=== PATIENT | female | born 1990 | race Caucasian/White ===

== ENCOUNTER 2020-03-10 05:12 | Outpatient (CLI) | payer MEDICAID, SELFPAY ==
[2020-03-10 10:12] LABS: Abs Immature Grans 0.01 10^3/uL (0.0-0.06); Absolute Basophil Count 0.02 10^3/uL (0.0-0.2); Absolute Eosinophil Count 0.09 10^3/uL (0.0-0.7); Absolute Lymphocyte Count 1.04 10^3/uL (1.2-3.4); Absolute Monocyte Count 0.31 10^3/uL (0.1-0.8); Basophils % 0.5; Eosinophils % 2.2; HCT 39.5 % (36.0-46.0); HGB 13.2 g/dL (11.2-15.7); Immature Grans % 0.2; Lymphocytes % 25.9; MCH 29.8 pg (27.0-33.0); MCHC 33.4 % (32.0-36.0); MCV 89.2 fL (80-95); MPV 10.4 fL (8.0-11.0); Monocytes % 7.7; Neutrophils % 63.5; Nucleated RBC 0 %; Platelet Count 298 10^3/uL (130-400); RBC 4.43 10^6/uL (3.93-5.22); RDW 12.3 % (11.7-14.6); RDW-SD 40.8 fL; WBC 4.01 10^3/uL (4.4-10.8)
[2020-03-10 10:14] LABS: Absolute Neutrophil Count 2.55 10^3/uL (1.2-6.7)
[2020-03-10 10:32] LABS: Hemoglobin A1C 5.4 % (<5.7)
[2020-03-10 10:54] LABS: Iron 60 ug/dL (50-170); Total Iron Binding Capacity 286 ug/dL (250-450); Transferrin Sat 21 % (15-50)
[2020-03-10 11:09] LABS: ALT 21 U/L (14-59); AST 22 U/L (15-37); Albumin 4.2 g/dL (3.4-5.0); Alkaline Phosphatase 49 U/L (46-116); BUN 11 mg/dL (7-18); Bilirubin, Total 0.4 mg/dL (0.2-1.0); CREATININE 0.92 mg/dL (0.55-1.02); Calcium 9.2 mg/dL (8.5-10.1); Calculated LDL 122 mg/dL (<100); Chloride 107 mmol/L (98-107); Cholesterol 185 mg/dL (<200); Ferritin 45 ng/mL (8-252); Glucose 93 mg/dL (74-106); HDL Cholesterol 50 mg/dL (40-60); Potassium 4.9 mmol/L (3.5-5.1); Sodium 141 mmol/L (136-145); Total Protein 7.5 g/dL (6.4-8.2); Triglyceride 66 mg/dL (<150)
[2020-03-11 04:37] LABS: Vitamin D 25 Total 80.6 ng/ml (30-100)
[2020-03-11 12:23] LABS: Lipoprotein (a) 28 mg/dL (<=30)
[2020-03-12 10:20] LABS: Homocysteine 12.3 umol/L (5.0-13.9)
== END 2020-03-10 05:32 ==
PROVIDERS: PCP Naturopath; Visit Provider Naturopath
DX: E55.9 Vitamin D deficiency, unspecified (principal); D50.9 Iron deficiency anemia, unspecified; Z13.220 Encounter for screening for lipoid disorders
CPT/HCPCS: 36415; 80053; 80061; 82306; 83090; 83695; 82728; 83036; 83540; 83550; 85025

== ENCOUNTER 2020-03-11 09:22 | Outpatient (REF) | payer MEDICAID, SELFPAY ==
--- NOTE | 2020-03-11 12:15 | PAPFT_PTH ---
PATIENT: Twila Larsen LOC: [facility] U#:[id number] AGE/SX: 29/F ROOM: RE03/11/[address]: Melanie Suarez : 1990 BED: DIS: 03/11/2020 SPEC #: [id number] RECD: 03/12/20 09:44 STATUS: ADRIANO RERio #: [id number] RADHA: 03/11/20 12:[address]: Melanie Suarez DEPT: [facility] Cytology RECD BY: Harika Mcdonough Tissues: 1 - CX/ENDOCX FOR PAP SMEARS Procedures: PAP THIN PREP/UVM Screening HPV DNA PROBE Comments: [id number] (CHLAMYDIA/GC)
[2020-03-15 14:53] LABS: Chlamydia Result Negative (Negative); GC Result Negative (Negative)
== END 2020-03-11 09:42 ==
LOC: LBN 09:22
PROVIDERS: PCP Naturopath; Visit Provider Naturopath
DX: Z11.3 Encounter for screening for infections with a predominantly sexual mode of transmission (principal); Z12.4 Encounter for screening for malignant neoplasm of cervix; R87.612 Low grade squamous intraepithelial lesion on cytologic smear of cervix (LGSIL); Z11.51 Encounter for screening for human papillomavirus (HPV)
CPT/HCPCS: 87491; 87591; 88142; 87624

== ENCOUNTER 2020-04-14 16:19 | Outpatient (REF) | payer MEDICAID, SELFPAY ==
--- NOTE | 2020-04-14 15:40 | CER_PTH ---
PATIENT: Twila Larsen LOC: [facility] U#:[id number] AGE/SX: 30/F ROOM: RE04/14/[address]: Yuridia Mahan DO : 1990 BED: DIS: 04/14/2020 SPEC #: [id number] RECD: 04/14/20 17:05 STATUS: ADRIANO REQ #: [id number] RADHA: 04/14/20 15:[address]: Yuridia Mahan DEPT: Surgical Specimen RECD BY: Lorraine Lim ENTERED: 04/14/20 17:06 SP TYPE: CER OTHR DR: Melanie Suarez Tissues: 1 - CERVICAL BIOPSY 2 - ENDOCERVICAL BX/CURRETTE Procedures: GROSS AND MICRO LEVEL 4 Comments: [id number]
== END 2020-04-14 16:39 ==
LOC: LBN 16:19
PROVIDERS: PCP Naturopath; Visit Provider Obstetrics & Gynecology
DX: Z12.4 Encounter for screening for malignant neoplasm of cervix (principal); Z97.5 Presence of (intrauterine) contraceptive device; R87.810 Cervical high risk human papillomavirus (HPV) DNA test positive; R87.612 Low grade squamous intraepithelial lesion on cytologic smear of cervix (LGSIL)
CPT/HCPCS: 88305

== ENCOUNTER 2021-05-27 14:51 | Outpatient (REF) | payer MEDICAID, SELFPAY ==
--- NOTE | 2021-05-27 14:00 | PAPFT_PTH ---
PATIENT: Twila Larsen LOC: [facility] U#:[id number] AGE/SX: 31/F ROOM: RE05/27/[address]: Lydia Jung : 1990 BED: DIS: 05/27/2021 SPEC #: [id number] RECD: 05/27/21 17:01 STATUS: ADRIANO RERio #: [id number] RADHA: 05/27/21 14:[address]: Lydia Jung DEPT: [facility] Cytology RECD BY: Lorraine Lim ENTERED: 05/27/21 17:01 SP TYPE: PAPFT OTHR DR: Ann Ellington Tissues: 1 - CX/ENDOCX FOR PAP SMEARS Procedures: PAP THIN PREP/UVM Screening HPV DNA PROBE Comments: [id number]
== END 2021-05-27 14:52 | disposition home or self-care (01) ==
LOC: LBN 14:51
PROVIDERS: PCP Family Medicine; Visit Provider Obstetrics & Gynecology Gynecology
DX: Z12.4 Encounter for screening for malignant neoplasm of cervix (principal); Z11.51 Encounter for screening for human papillomavirus (HPV); R87.612 Low grade squamous intraepithelial lesion on cytologic smear of cervix (LGSIL); R87.820 Cervical low risk human papillomavirus (HPV) DNA test positive
CPT/HCPCS: 88142; 87624

== ENCOUNTER 2021-07-11 15:04 | Outpatient (REF) | payer MEDICAID, SELFPAY ==
--- NOTE | 2021-07-11 14:40 | CER_PTH ---
PATIENT: Twila Larsen LOC: [facility] U#:[id number] AGE/SX: 31/F ROOM: RE07/11/[address]: Yuridia Mahan DO : 1990 BED: DIS: 07/11/2021 SPEC #: [id number] RECD: 07/11/21 18:29 STATUS: ADRIANO REQ #: [id number] RADHA: 07/11/21 14:[address]: Yuridia Mahan DEPT: Surgical Specimen RECD BY: Lorraine Lim ENTERED: 07/11/21 18:30 SP TYPE: CER OTHR DR: Ann Ellington Tissues: 1 - ENDOCERVICAL BX/CURRETTE 2 - CERVICAL BIOPSY Procedures: GROSS AND MICRO LEVEL 4 Comments: [id number]
== END 2021-07-11 15:05 | disposition home or self-care (01) ==
LOC: LBN 15:04
PROVIDERS: PCP Family Medicine; Visit Provider Obstetrics & Gynecology
DX: N87.0 Mild cervical dysplasia (principal)
CPT/HCPCS: 88305

== ENCOUNTER 2021-09-02 07:29 | Outpatient (CLI) | payer MEDICAID, SELFPAY ==
--- NOTE | 2021-09-02 13:20 | DI.RAD_ITS ---
Exam(s) XR SHOULDER RT COMPLETE 2+V EXAM: XR SHOULDER RT COMPLETE 2+V CLINICAL HISTORY: right shoulder pain, new bump,m25.511. TECHNIQUE: 2D digital imaging was performed. COMPARISON: No exams were available for comparison FINDINGS: No evidence of fracture or dislocation. No soft tissue calcifications. No degenerative changes in t he glenohumeral joint and AC joint. Bone density normal. No osseous lesions. IMPRESSION: No significant radiographic findings. DATA REPOSITORY: RADIATION DOSE DELIVERED:
== END 2021-09-02 07:49 ==
PROVIDERS: PCP Family Medicine; Visit Provider Family Medicine
DX: M25.511 Pain in right shoulder (principal)
CPT/HCPCS: 73030

== ENCOUNTER 2021-10-21 20:40 | Emergency (ER) | payer MEDICAID, SELFPAY ==
[2021-10-21 20:45] VITALS: BP 127/107; PULSE 99; RESP 14; TEMP 37.8; O2SAT 98
--- OUTSIDE RECORDS SUMMARY | 2021-10-21 20:47 | XMS_ITS ---
:1990 External Reference #:[id number] Author Care Team Providers Name Role Phone [facility] Primary Care Provider Unavailable Allergies Code Code System Name Reaction Severity Status Onset Sulfa Hives Moderate to Active 02/06/19 97 (Sulfonamid Severe e Antibiotics ) Medications None recorded. Problems Name Status Onset Date Source ? Vitamin D Deficiency Active 02/26/2020 ? Insomnia Active 02/26/2020 ? Bilateral Tinnitus Active 02/26/2020 ? Leukorrhea Active 03/11/2020 ? Procedures None recorded. Results Lab Results None recorded. Past Encounters None recorded. Social History Tobacco Smoking Status Former Smoker Vaccine List None recorded. Plan of Care Reminders Provider Appointments None ? ? recorded. Lab None ? ? recorded. Referral None ? ? recorded. Procedures None ? ? recorded. Surgeries None ? ? recorded. Imaging None ? ? recorded. Vitals None recorded.
[2021-10-21] MEDS: Lactated Ringers 1,000 ML 1000 ML IV (21:00)
[2021-10-21 21:05] LABS: Abs Immature Grans 0.02 10^3/uL (0.0-0.06); Absolute Basophil Count 0.03 10^3/uL (0.0-0.2); Absolute Eosinophil Count 0.03 10^3/uL (0.0-0.7); Absolute Lymphocyte Count 1.15 10^3/uL (1.2-3.4); Absolute Monocyte Count 0.91 10^3/uL (0.1-0.8); Absolute Neutrophil Count 4.76 10^3/uL (1.2-6.7); Basophils % 0.4; Eosinophils % 0.4; HCT 41.9 % (36.0-46.0); HGB 13.9 g/dL (11.2-15.7); Immature Grans % 0.3; Lymphocytes % 16.7; MCH 29.3 pg (27.0-33.0); MCHC 33.2 % (32.0-36.0); MCV 88.4 fL (80-95); MPV 10.4 fL (8.0-11.0); Monocytes % 13.2; Platelet Count 290 10^3/uL (130-400); RBC 4.74 10^6/uL (3.93-5.22); RDW 11.9 % (11.7-14.6); RDW-SD 38.6 fL
[2021-10-21 21:18] LABS: ALT 13 U/L (14-59); AST 14 U/L (15-37); Alkaline Phosphatase 63 U/L (46-116); Anion Gap 11.1 mmol/L (3-11); BUN 8 mg/dL (7-18); Bilirubin, Total 0.3 mg/dL (0.2-1.0); CO2 22.9 mmol/L (21.0-32.0); CREATININE 0.8 mg/dL (0.55-1.02); Chloride 101 mmol/L (98-107); Glucose 98 mg/dL (74-106); Magnesium 1.9 mg/dL (1.8-2.4); Potassium 4.2 mmol/L (3.5-5.1); Sodium 135 mmol/L (136-145); Total Protein 7.9 g/dL (6.4-8.2)
--- NOTE | 2021-10-21 21:58 | ED.GENADUL_ITS ---
Discharge Plan Disposition Patient Disposition: STILL A PATIENT Discharge Details Clinical Impression: Acute diarrhea Primary Care Provider: Ann Ellington ED Provider: Hai Aguero Home Meds and New Rx's Prescriptions: No Action magnesium 250 mg Tablet 250 mg PO DAILY 0RF cholecalciferol (vitamin D3) [Vitamin D3] 25 mcg (1,000 unit) Tablet 25 mcg PO DAILY 0RF Probiotic 10 billion cell Capsule 10,000 mmu cells PO DAILY 0RF Medical Decision Making 1000p --31-year-old female here with diarrhea for the past 5 days after traveling to [place] and [facility]. She has associated abdominal cramping and fever today of 100.6. No bloody stool. Concern for traveler's diarrhea. Given severity of symptoms without fever, I will treat with azithromycin 1000 mg x1. Abdominal exam is benign. Plan to provide IV rehydration, I have initiated 1 L fluid bolus. Electrolytes reviewed and mild hyponatremia noted. 1041 --care signed out to oncoming physician Dr. Linder with plan to reassess patient for disposition after completion of IV HPI General Mode of arrival: ambulatory . Date/Time Provider Initiated Documentation: 10/21/21 20:57 . Limitations to Documentation: no limitations . Information obtained by: patient . HPI Narrative: 31yo f presents with chief complaint of diarrhea. Patient notes diarrhea for the past 5 days. Patient was traveling abroad in [place] and [facility] and does note she ate some undercooked food. She returned to 1 week ago and was feeling fine on Sunday and Sunday and started to have symptoms Sunday. Diarrhea has been severe. She has associated abdominal cramping that is diffuse. She has diarrhea is brown liquid. No bloody stool. No associated nausea or vomiting. Today she is felt dizzy. Patient notes fever tonight of 101.6F. Related Data Home Medications Medication Instructions Recorded Confirmed Lactobacillus acidophilus 10 10,000 mmu cells PO DAILY 10/21/21 10/21/21 billion cell capsule (Probiotic) cholecalciferol (vitamin D3) 25 25 mcg PO DAILY 10/21/21 10/21/21 mcg (1,000 unit) tablet (Vitamin D3) magnesium 250 mg tablet 250 mg PO DAILY 10/21/21 10/21/21 Allergies Allergy/AdvReac Type Severity Reaction Status Date / Time Sulfa (Sulfonamide Allergy Severe Verified 10/21/21 20:58 Antibiotics) General Stated Complaint: Nausea/Vomit/Diar DARWIN: 3 Review of Systems Constitutional Constitutional: Reports fever(s) Gastrointestinal Gastrointestinal: Reports as per HPI PFSH All Active Problems (Updated 10/21/21 @ 22:15 by Hai Aguero MD) Acute diarrhea (Acute) Biceps tendinitis of right shoulder (Acute) Bursitis of right shoulder (Acute) Arthralgia of right acromioclavicular joint (Acute) IUD (intrauterine device) in place (Acute) 2018-Lietta IUD. Mood disorder (Acute) Suspected Bipolar I Anxiety (Chronic) Depression (Chronic) Patellofemoral syndrome (Acute) TMJ (temporomandibular joint disorder) (Acute) Urinary frequency (Acute) since age 3 LGSIL on Pap smear of cervix (Acute) LSIL 2019, Colpo WNL. LSIL pap 2020, colpo 07/2022 Contraception management (Acute) Family History Mother Cancer Leukemia Father No problems noted. Sister Alcohol use disorder Substance use disorder Brother Asthma Maternal Grandfather , 88 Leukemia Paternal Grandfather , 49? Cancer radiation exposure. multiple forms of cancer Maternal Grandmother , 86 Stroke Paternal Grandmother , 95 Diabetes Hyperlipidemia Stroke Social History Smoking/Tobacco Use Status: Former Tobacco Use Second Hand Exposure: Yes Smoking risk assessment performed?: Yes Alcohol Intake: current Alcohol Intake frequency: a few times a month Alcohol type: beer Drug use: Daily Substance use type: marijuana Details: Tried marijuana yesterday to help with nausea without relief. Caregiver/Support person: No Household members: significant other and other Details: PASCALE Jian. since 07/2019. He works at [employer] 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 Pets and animals: Yes Pets and animals: cat(s), dog(s) and farm animals Sexually active: Yes Do you think of yourself as: straight/heterosexual Current gender identity: female What is your relationship status?: living with partner How often do you talk on the phone with friends or family?: twice per week How often do you get together with friends or relatives?: twice per week How often do you attend yarsanism or cheondoism services?: decline to answer Do you belong to any clubs or organized social groups?: yes Panel score (0-1 are the most socially isolated patients): 3 What type of physical activity do you participate in: regular exercise, other Details: climbing, mountain biking. and yoga Duration: 30-45 minutes/day Frequency: 3-4 times per week Fabi/Rastafarian: Unknown Seatbelt use: always Helmet use: Yes Drive intox or ride w/intox tow bar driver: No Do you feel safe at home: Yes Do you feel safe in your relationship?: Yes History History 0 Para Hx # Term Pregnancies Multiple births Hx # Pregnancies Ectopic pregnancies AB induced Hx Number of Living Children AB spontaneous Exam Const General: cooperative and no acute distress HENMT Mouth: mucous membranes dry Eyes Conjunctivae: normal conjunctivae Sclera: normal sclerae Neck Neck: trachea midline and supple Resp Auscultation: clear to auscultation bilaterally, no rales, no rhonchi and no wheezes Cardio Rate: regular rate and not tachycardic Rhythm: regular rhythm GI Palpation: soft, not firm, no guarding, no masses and not rigid Skin General skin exam: no rashes or lesions noted Neuro General: patient alert and patient awake Extrem General: no edema Psych Appearance: grossly normal Mental Status: mental status grossly normal Course Vital Signs Vital signs: Vital Signs Temperature 37.8 C H 10/21/21 20:45 Pulse 99 H 10/21/21 20:45 Respiratory Rate 14 10/21/21 20:45 Blood Pressure 127/107 H 10/21/21 20:45 Pulse Oximetry 98 10/21/21 20:45 Temperature 37.8 C H 10/21/21 20:45 Temperature Source Skin 10/21/21 20:45 Pulse 99 H 10/21/21 20:45 Respiratory Rate 14 10/21/21 20:45 Respiratory Effort Non-Labored 10/21/21 20:49 Blood Pressure 127/107 H 10/21/21 20:45 Blood Pressure Position Sitting 10/21/21 20:45 Pulse Oximetry 98 10/21/21 20:45 Oxygen Delivery Method Room Air 10/21/21 20:45 Oxygen Flow Rate 0 10/21/21 20:45 Pain Level 8 04/15/22 20:45 Lab/Test Results Lab/Test Results: Laboratory Tests Range/Units 10/21/21 10/21/21 21:00 21:00 WBC (4.4-10.8) 10^3/uL 6.90 RBC (3.93-5.22) 10^6/uL 4.74 Hgb (11.2-15.7) g/dL 13.9 Hct (36.0-46.0) % 41.9 MCV (80-95) fL 88.4 MCH (27.0-33.0) pg 29.3 MCHC (32.0-36.0) % 33.2 RDW (11.7-14.6) % 11.9 Plt Count (130-400) 10^3/uL 290 MPV (8.0-11.0) fL 10.4 Immature Gran % 0.3 Neutrophils % 69.0 Lymphocytes % 16.7 Monocytes % 13.2 Eosinophils % 0.4 Basophils % 0.4 Nucleated RBC % (0.0-0.3) % 0.0 Absolute Neutrophils (1.2-6.7) 10^3/uL 4.76 Absolute Lymphocytes (1.2-3.4) 10^3/uL 1.15 L Absolute Monocytes (0.1-0.8) 10^3/uL 0.91 H Absolute Eosinophils (0.0-0.7) 10^3/uL 0.03 Absolute Basophils (0.0-0.2) 10^3/uL 0.03 Sodium (136-145) mmol/L 135 L Potassium (3.5-5.1) mmol/L 4.2 Chloride (98-107) mmol/L 101 Carbon Dioxide (21.0-32.0) mmol/L 22.9 Anion Gap (3-11) mmol/L 11.1 H BUN (7-18) mg/dL 8 Creatinine (0.55-1.02) mg/dL 0.8 Estimated GFR/1.73 m2 (mL/min/1.73m2) >= 60.00 Glucose (74-106) mg/dL 98 Calcium (8.5-10.1) mg/dL 9.0 Magnesium (1.8-2.4) mg/dL 1.9 Total Bilirubin (0.2-1.0) mg/dL 0.3 AST (15-37) U/L 14 L ALT (14-59) U/L 13 L Alkaline Phosphatase (46-116) U/L 63 Total Protein (6.4-8.2) g/dL 7.9 Albumin (3.4-5.0) g/dL 4.0 Sign Out Sign Out Data: Sign Out Comment: reassess for disposition Last updated by Hai Aguero MD at 10/21/21 22:41
[2021-10-21] MEDS: Azithromycin 250 MG TAB 1000 MG PO (22:30)
--- NOTE | 2021-10-22 00:05 | ED.PROG_ITS ---
Date of service: 10/22/21 Time of Service: 00:05 Medical Decision Making The patient was signed out to me by my colleague Dr. Hai Aguero. Please refer to his HPI, physical exam, assessment and plan. At time of signout we are waiting reassessment of fluids finished. Brief history, the patient recently traveled, had a fever and diarrhea for the last few days. She presented to the ER, had a benign nonsurgical abdomen on exam, labs were unremarkable, she was rehydrated, and stool studies were sent. She was given a gram of azithromycin for treatment for infectious diarrhea. At time of reassessment patient is feeling much better. Her diarrhea has been diminished here in the ED. Stool studies have been sent. Repeat abdominal exam shows no pain to McBurney's point, negative Baez sign. No signs of an acute surgical abdomen whatsoever. Mild lower abdominal achiness, but no significant tenderness. No peritoneal signs. With the patient subjective improvement, and her continued encouraging exam objectively, I do agree with the initial plan and see no indication for emergent imaging currently. Will recommend continued fluids, follow-up on stool studies, Pepto-Bismol, and continue probiotic. I discussed with the patient concerning symptoms that could come about later that would warrant immediate return, including signs and symptoms of appendicitis, colitis, and other concerning abdominal abnormalities. Patient understands. Discussed red flags which to return. I did make it clear to the patient that I have on for the next week, that she can call if she has any other concerns that present. I have extensively reviewed the treatment plan and discharge instructions with the patient. I have addressed all patient concerns at this time. The patient was made aware of what symptoms to monitor for that would warrant a return to the emergency department. Discussed the plan with the giovany waldron, they demonstrate verbal understanding and agreement with our assessment and plan at this time. The documentation in this chart was dictated using [employer] dictation software. Please excuse any dictation errors. Sign Out Sign Out Data: Sign Out Comment: reassess for disposition Last updated by Hai Aguero MD at 10/21/21 22:41 Discharge Plan Disposition Patient Disposition: HOME Discharge Details Clinical Impression: Acute diarrhea Primary Care Provider: Ann Ellington ED Provider: Hai Aguero Home Meds and New Rx's Prescriptions: Continued magnesium 250 mg Tablet 250 mg PO DAILY 0RF cholecalciferol (vitamin D3) [Vitamin D3] 25 mcg (1,000 unit) Tablet 25 mcg PO DAILY 0RF Probiotic 10 billion cell Capsule 10,000 mmu cells PO DAILY 0RF Discharge Instructions Instructions: Acute Diarrhea (ED) Additional Instructions: You have been given the antibiotic dose for your diarrhea. This should help improve your symptoms as there is an infectious component. Please hold off on taking any specific antidiarrhea pills until the culture results of your stool have come back. You will be contacted if your results come back with any concerning positive findings. Please drink plenty of fluids, take your home probiotic regularly. You can take Pepto-Bismol to help with your symptoms. If you notice any worsening of your symptoms, or any new symptoms such as vomiting, worsening diarrhea, blood in your stool, fever, chills, shortness of breath, chest pain, numbness, weakness, or fainting , please return immediately to the emergency department for reevaluation. Please follow up with your primary care provider as soon as possible for reassessment and reevaluation. As always, it was a pleasure participating in your medical care today. Referrals: Ann Ellington MD [Primary Care Provider] -
[2021-10-22 00:38] VITALS: BP 121/54; PULSE 80; RESP 14; TEMP 37.2; O2SAT 97
[2021-10-23 10:47] LABS: Campylobacter PCR Negative (Negative); Salmonella PCR Positive (Negative); Shiga Toxin PCR Negative (Negative); Shigella/Enteroinvasive Ecoli Negative (Negative)
[2021-10-23 10:58] LABS: COVID-19 RT-PCR UVMMC Result Negative (Negative)
--- NOTE | 2021-10-23 11:01 | W.ED.FU ---
Follow Up Plan: lab called and pt's fecal bacterial pcr came back positive for salmonella. Called patient and she feels better, no fevers or abdomen pain and diarrhea improving. Per up todate guidelines self limiting course and advised antibiotics not indicated but to return if any worsening symptoms.
--- NOTE | 2021-10-24 09:48 | NUR.NOTE ---
left message for patient to return our call about her covid results
--- NOTE | 2021-10-26 11:19 | NUR.NOTE ---
Nursing Note: Given Negative Covid test result. Verbalizes understanding. States feeling much better.
== END 2021-10-22 00:37 | disposition home or self-care (01) ==
PROVIDERS: Student in an Organized Health Care Education/Training Program; Emergency Provider Student in an Organized Health Care Education/Training Program; PCP Family Medicine
DX: R19.7 Diarrhea, unspecified (principal); R50.9 Fever, unspecified; E87.1 Hypo-osmolality and hyponatremia; Z20.822 Contact with and (suspected) exposure to COVID-19; A02.8 Other specified salmonella infections
CPT/HCPCS: 80053; 87505; 96360; 96361; 99283; 99284; U0003; 83735; 85025

== ENCOUNTER → 2021-11-02 02:06 | Outpatient (CLI) | payer MEDICAID, SELFPAY ==
--- NOTE | 2021-11-02 07:00 | DI.MRI_ITS ---
Exam(s) MR UPPER JOINT RT WO EXAM: MR UPPER JOINT RT WO CLINICAL HISTORY: r shoulder pain,BICEPS TENDINITIS,BURSITIS,ARTHRALGIA,M75.21,M75.51,M25.511. TECHNIQUE: Multiplanar multisequence MRI was performed. COMPARISON: Plain films 02 September 2021 FINDINGS: Bones: There is no fracture or contusion pattern. The acromioclavicular joint shows minimal spurring and a s mall amount of fluid.. Glenohumeral joint: No subacromial, subcoracoid or glenohumeral joint effusion is present. Rotator Cuff: The supraspinatus tendon shows mild thickening distally with some intermediate signal. No focal tear . The infraspinatus tendon is intact . The subscapularis and teres minor are normal. Labrum and biceps anchor: The biceps tendon is located. The anchor is well maintained. The labrum is within normal limits. IMPRESSION: Mild AC joint degenerative changes. Mild supraspinatus tendinosis. DATA REPOSITORY:
== END ==
PROVIDERS: PCP Family Medicine; Visit Provider Student in an Organized Health Care Education/Training Program
DX: M25.511 Pain in right shoulder (principal); M75.21 Bicipital tendinitis, right shoulder; M19.011 Primary osteoarthritis, right shoulder
CPT/HCPCS: 73221

== ENCOUNTER 2022-05-26 06:55 | Day surgery (SDC) | payer MEDICAID, SELFPAY ==
[2022-05-26] VITALS (14 sets, daily range): BP systolic 105–127; BP diastolic 45–79; PULSE 46–84; RESP 12–26; TEMP 36.2–37.2; O2SAT 93–100; BMI 27.4
--- NOTE | 2022-05-26 07:57 | ANES.PREOP_ITS ---
General Info Date of Service Date Performed: 05/26/22 Height: 5 ft 11 in Weight: 89.2 kg Body Mass Index (BMI): 27.4 Surgical Procedure: Operation Date: 05/26/22 09:10 Proposed Procedure Side Surgeon p Shoulder Arthroscopy w/Extensive Debridement, Subacromial Decompression and Distal Clavicle Excision possible Biceps Tenodesis Right Carlitos Leslie MD Meds Allergies and Home Medications Allergies Allergy/AdvReac Type Severity Reaction Status Date / Time Sulfa (Sulfonamide Allergy Severe Verified 05/26/22 07:00 Antibiotics) Home Medication Medication Instructions Recorded Lactobacillus acidophilus 10 10,000 mmu cells PO DAILY 10/21/21 billion cell capsule (Probiotic) magnesium 250 mg tablet 250 mg PO DAILY 10/21/21 biotin 1 mg tablet 1 mg PO DAILY 05/03/22 ulipristal 30 mg tablet (Roxana) 30 mg PO ONCE #1 tab 05/09/22 amoxicillin 500 mg tablet 1,000 mg PO ONCE 05/24/22 cholecalciferol (vitamin D3) 25 1,000 unit PO DAILY 05/24/22 mcg (1,000 unit) tablet (Vitamin D3) naproxen 250 mg tablet 250 - 500 mg PO BID PRN #40 tabs 05/26/22 tramadol 50 mg tablet 50 mg PO Q8H PRN severe pain #9 05/26/22 tabs Current Visit Medications: Current Medications Generic Name Dose Route Start Last Admin Trade Name Freq PRN Reason Stop Dose Admin Ringer's Solution 1,000 mls @ 30 mls/hr 05/26/22 06:00 IV 05/26/22 16:00 [facility] Cefazolin Sodium/Dextrose 2 gm in 50 mls @ 100 mls/hr 05/26/22 06:00 Ancef Duplex IVPB 05/26/22 23:59 PREOP ROXANN IV Miscellaneous Supplies 1 each 05/26/22 06:00 Iv Access IV 05/26/22 23:59 DIRECTED ROXANN Oxycodone HCl 0 mg 05/26/22 07:18 Oxycodone 5 Mg Tab PO Q3H PRN PRN Pain Sodium Chloride 0 ml 05/26/22 06:00 Normal Saline Flush 10 Ml Syr IV 05/26/22 23:59 PRN PRN Sodium Chloride 0 ml 05/26/22 06:00 Normal Saline 10 Ml Vial IJ 05/26/22 23:59 DIRECTED PRN Sterile Water 0 ml 05/26/22 06:00 Water,Injection,Sterile 10 Ml Vial IJ 05/26/22 23:59 DIRECTED PRN PFSH Active Problems Active Problems: Problem Status Onset Code Contraception management Z30.9 LGSIL on Pap smear of cervix R87.612 Urinary frequency R35.0 TMJ (temporomandibular joint disorder) M26.609 Patellofemoral syndrome M22.2X9 Depression F32.A Anxiety F41.9 Mood disorder F39 IUD (intrauterine device) in place Z97.5 Arthralgia of right acromioclavicular joint M25.511 Biceps tendinitis of right shoulder M75.21 Thoracic back pain M54.6 Medical History Medical History (Updated 05/26/22 @ 07:20 by Carlitos Leslie MD) Bursitis of right shoulder COVID 04/18/22 Tick bite 05/23/22 Surgical History Surgical History H/O wisdom tooth extraction no anesthesia Tobacco Smoking/Tobacco Use Status: Never Second hand exposure: Yes Alcohol Alcohol Intake: current Alcohol intake frequency: a few times a month Alcohol type: beer Substance Use Substance use type: does not use Prental History History 0 Para Hx # Term Pregnancies Multiple births Hx # Pregnancies Ectopic pregnancies AB induced Hx Number of Living Children AB spontaneous Vital Signs and Lab Results Vital Signs Most Recent Vital Signs in EMR: Most Recent Vital Signs Temp Pulse Resp BP Pulse Ox 37.2 C 74 16 108/59 L 98 05/26/22 07:02 05/26/22 07:02 05/26/22 07:02 05/26/22 07:02 05/26/22 07:02 Lab Results Blood Type / Crossmatch: No Data to Display Complete Blood Count: No Data to Display Complete Metabolic Panel: No Data to Display Liver Function Panel: No Data to Display Coagulation Panel: No Data to Display Cardiac Panel: No Data to Display Arterial Blood Gas: No Data to Display Venous Blood Gas: No Data to Display Pancreas Panel: No Data to Display Thyroid Panel: No Data to Display Infectious Disease: No Data to Display Blood Cultures: No Data to Display Toxicology Panel: No Data to Display Panel: No Data to Display Anesthesia Assessment and Plan Anesthesia History Personal History: No History of Anesthesia Complications Family History: No Family History of Anesthesia Complications Exercise Tolerance Exercise Tolerance: Metabolic Equivalents>4 Pertinent Negatives Pertinent Negatives: No Symptoms of GERD, No Major Cardiovascular Symptoms or Complaints, No Major Pulmonary Symptoms or Complaints and No History of CVA/TIA Cardiac & Pulmonary Exam Cardiac Exam: Normal S1/S2 Heart Sounds Pulmonary Exam: Clear Bilateral Breath Sounds Implantable Cardiac Device Does patient have a Pacemaker or an ICD?: No Airway Exam Known Difficult Airway: No Mallampati Class: 1 Mouth Opening: Normal (> 3cm) Thyromental Distance: Greater than 3 cm Neck Range of Motion: Full ROM Neck Circumference: Normal Teeth Condition: Normal Dentition ASA Classification ASA Score: ASA 2 Emergency Case?: No NPO Status NPO Status: NPO Clears >2 hours, Solids >8 hours Status Status: Negative HCG Anesthesia Plan Resuscitation Status: Full Code Anesthesia Technique: General Anesthesia Airway Planned: Endotracheal Tube Pain Management: Surgeon and patient request nerve block (Right supraclavicular block for post op pain) Monitors Used: Standard Monitors
[2022-05-26] MEDS: ceFAZolin 2 GM/50 ML BAG IVPB (09:06)
[2022-05-26] MEDS: Lactated Ringers 1,000 ML 30 ML IV (09:15)
--- NOTE | 2022-05-26 09:36 | W.ANESNERVE ---
Nerve Block Single Injection Procedure Date and Time Date Performed: 05/26/22 Procedure Start: 08:42 Location Where Procedure Performed Procedure Location: Day Surgery Unit Reason Performed: Postoperative Analgesia Requesting Provider: Carlitos Leslie Timeout Performed Timeout Performed: Yes Monitoring Used ECG, Blood Pressure, SpO2 and See EMR for corresponding vital signs Sterility Sterility: Hand Hygiene, Surgical Cap, Surgical Mask, Sterile Gloves, Sterile Drape/Sheet and Chlorhexidine Sedation Given During Procedure Sedation Given (Indicate Dose Given): Versed IV Dose:: 2 mg Patient Mental Status Patient Mental Status: Sedate with meaningful communication Nerve Block 1st Nerve Block: Laterality: Right Block Type: Supraclavicular Needle / Catheter Used: 100mm SonoPlex II Local Anesthetic Bolus (Indicate Dose Given): Lidocaine used for local infiltration of skin, Injected in 3-5ml increments after negative blood aspiration and Bupivacaine 0.5% Dose:: 12 ml Additives (Indicate Dose Given): Precedex Dose:: 60 mcg Ultrasound: Sterile probe cover and gel used Ultrasound Image Saved?: Yes Nerve Stimulator: Not Used Paresthesia: None Procedure Tolerated: No Complications and Patient tolerated well Procedure Outcome: Successful Performed By: Katharine Maldonado
[2022-05-26] MEDS: EPINEPHrine 30 MG/30 ML VIAL (10:04)
[2022-05-26] MEDS: Bupivacaine 0.5% Pres-Free W/EPI 10 ML VIAL (10:17)
--- NOTE | 2022-05-26 10:20 | W.PM.DSUDISC ---
Date of service: 05/26/22 Time of Service: 10:20 Discharge Plan Disposition Patient Disposition: HOME Condition: Good Discharge Details Attending Provider: Carlitos Leslie Primary Care Provider: Unknown,Unknown Home Meds and New Rx's Prescriptions: New naproxen 250 mg tablet 250 - 500 mg PO BID PRNQty: 40 0RF Rx Instructions: take with a meal tramadol 50 mg tablet 50 mg PO Q8H PRN (Reason: severe pain) Qty: 9 0RF Continued biotin 1 mg tablet 1 mg PO DAILY Roxana 30 mg tablet 30 mg PO ONCE Qty: 1 0RF Rx Instructions: as a single dose amoxicillin 500 mg Tablet 1,000 mg PO ONCE Label Comments: tick bite cholecalciferol (vitamin D3) [Vitamin D3] 25 mcg (1,000 unit) Tablet 1,000 unit PO DAILY magnesium 250 mg Tablet 250 mg PO DAILY Probiotic 10 billion cell Capsule 10,000 mmu cells PO DAILY Discharge Instructions Additional Instructions: Surgery: Right shoulder arthroscopy with limited debridement, distal clavicle excision, and subacromial decompression. Activity: You should gradually increase range of motion motion and use of your shoulder. You may use your shoulder for all regular activities. Avoid heavy lifting, reaching overhead, or lifting away from body for approximately 6-8 weeks. You may use the sling whenever you are out of the house for a couple weeks. At home it is best to remove the sling and rest the arm on a pillow at your side or support the operative side with your other hand. A physical therapy prescription will be sent electronically to start in about 2 weeks. Prescriptions: Naproxen 250 mg take 1-2 every 12 hours with a meal as needed for moderate pain Oxycodone 5 mg take 1-2 every 4-6 hours as needed for severe pain You may use [id number] Tylenol (acetaminophen) as needed for mild pain. These pain medications may be taken all at once or in different combinations as needed. Also, recommend Colace (docusate) as a stool softener as surgery and pain medicine cause constipation. You may try tpaq-rrb-bismucm diphenhydramine (Benadryl) 25-50 mg nightly as a sleep aid Dressings: Remove shoulder bandage after 3 days. Leave the sticky Steri-Strips in place until they fall off or remove them after you shower. Cover the incisions with Band-Aids or leave them open to air. You may shower after 5 days. Follow-up: 10-[address] Leslie You may take off the leg compression stockings this evening at home. You may also leave them on a few days longer if you have a history of leg swelling or edema. Let us know right away if you develop any redness, drainage, fevers, chest pain, or trouble breathing. Do not drink alcohol or drive for at least 24 hours after anesthesia. Please call the office during business hours with any questions or concerns. DS: Diagnosis Discharge Diagnosis (1) Arthralgia of right acromioclavicular joint: Status: Acute
--- NOTE | 2022-05-26 10:40 | W.PM.OP ---
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 Bursitis POST-OP DIAGNOSIS: same PROCEDURE: Right: 1. Arthroscopic distal clavicle excision, CPT# 12669. This involved arthroscopically exposing the underside of the acromioclavicular joint, smoothing out bone spurs, and removing approximately a few millimeters of the distal clavicle so there was no bone left engaging the acromion. 2. Limited debridement, CPT# 18604. This involved using the mechanical shaver to mildly debride areas of anterior synovitis. 3. Subacromial decompression with partial acromioplasty, CPT# 96998. This involved using arthroscopic power instruments and a radiofrequency wand to complete a bursectomy and remove bone spurs on the undersurface of the acromion. The hospital aides and assistants teacher was medically required in order to help assist in techniques above, which require positioning the arm, holding the arthroscope, and manipulating multiple instruments and sutures at the same time. This cannot be done without the help of an experienced hospital aides and assistants teacher. SURGEON: Carlitos Leslie METAL WASHING MACHINE OPERATOR: Liseth Howell ANESTHESIA TYPE: Local By Surgeon, General LMA/ETT and Primary Nerve Block Refer to Anesthesia Record ESTIMATED BLOOD LOSS: 5 PATHOLOGY: none sent COMPLICATIONS: None Patient was transported to: PACU Patient's condition: stable Indications: The patient was diagnosed with the above conditions and appropriately indicated for surgical intervention. Please see complete medical record for details. Findings: Exam under anesthesia: Prominent AC joint. No instability. Full range of motion Glenohumeral joint: Intact, healthy articular cartilage, labrum, no SLAP tear or biceps tearing. No biceps injection or inflammation intra-articular segment or superior aspect bicipital groove. Intact biceps sling. Intact subscapularis and articular rotator cuff. Mild anterior synovitis. Subacromial space: Significant bursitis. Significant impinging AC joint and distal clavicle widening with cystic softening. Intact bursal rotator cuff. Procedure Description: In the operating room, general anesthesia was induced. Bilateral shoulders were examined. The patient was positioned in the beachchair position. All bony prominences were well-padded. Preoperative antibiotics were administered. The shoulder was prepped and draped in the usual sterile fashion. The correct patient, procedure, and side of the procedure were all verified prior to incision. In order to minimize postoperative pain, local anesthetic 0.25% bupivacaine containing epinephrine was infiltrated about the distal clavicle surgical site. Starting through the posterior portal a standard complete diagnostic arthroscopy was performed of the glenohumeral joint including inspection of the long head of the biceps, anterior and superior labrum, subscapularis tendon, supraspinatus and infraspinatus tendons, and axillary recess. The glenoid and humeral head cartilage as well as the posterior labrum were inspected from an anterior viewing portal. Significant findings and interventions noted above including the limited debridement. Starting through the posterior portal, the arthroscope was directed into the subacromial space. A lateral 50 yard line lateral portal was created. A combination of power instruments and a radiofrequency ablator were used to debride bursitis anteriorly, posteriorly, and laterally as well as expose and smooth bone spurring on the undersurface of the acromion, especially near the AC joint. The coracoacromial ligament was mildly released. The bursectomy was completed viewing laterally and working from posteriorly and the rotator cuff was thoroughly inspected with findings noted above. The anterior portal was redirected towards the undersurface of the AC joint. A shaver and electrocautery device were used to clear soft tissue from the undersurface of the AC joint. The distalmost aspect of the distal clavicle was then removed and smoothed so at least 5 mm of space was created between the distal clavicle and acromion. Care was taken to alternate between working through the anterior portal and viewing through the anterior portal to ensure that proper amount of bone was removed and there was no engaging bone left behind especially superiorly. The shoulder was drained of arthroscopic fluid. All portal sites were copiously irrigated. These incisions were closed using 3-0 Monocryl in a buried fashion and then covered with Mastisol, Steri-Strips, Xeroform, dry gauze, and ABDs. The dressings were covered and secured with Medipore tape. The operative extremity was placed into a sling for immobilization. The patient awoke from anesthesia without complication and was transferred to the recovery room in a stable condition.
[2022-05-26] MEDS: Normal Saline 10 ML VIAL IJ (10:43)
[2022-05-26] MEDS: HYDROmorphone 2 MG/ML SYR IVP ×2 (10:43→10:54)
[2022-05-26] MEDS: Midazolam 2 MG/2 ML VIAL IVP ×2 (10:51→11:23)
--- NOTE | 2022-05-26 14:13 | W.ANESPOSTOP ---
Postoperative Evaluation Date, Time and Location Date Performed: 05/26/22 Time Performed: 12:52 Patient Location: Day Surgery Unit Vital Signs Most Recent Imported Vital Signs: Most Recent Vital Signs Temp Pulse Resp BP Pulse Ox 36.5 C 62 16 112/73 96 05/26/22 12:22 05/26/22 12:22 05/26/22 12:22 05/26/22 12:22 05/26/22 12:22 Pain Score Most Recent Pain Score: Most Recent Pain Score Pain Level 3 05/26/22 12:22 Assessment Mental Status: Awake (Alert & Oriented to Patient Baseline) Airway and Respiratory Function: Patent airway with normal (patient baseline) respiratory exam Cardiovascular Function: Hemodynamically Stable Hydration Status: Adequately Hydrated Nausea & Vomiting: No Nausea or Vomiting Pain: Pain is tolerable per patient (Discomfort at back of shoulder only) Peripheral Nerve Block: Regional nerve block not resolved at time of post operative discharge
== END 2022-05-26 13:10 | disposition home or self-care (01) ==
PROVIDERS: Visit Provider Student in an Organized Health Care Education/Training Program
PROC: (CPT 29805; principal; 2022-05-26 09:00)
DX: M19.011 Primary osteoarthritis, right shoulder (principal); M75.51 Bursitis of right shoulder; M75.21 Bicipital tendinitis, right shoulder
CPT/HCPCS: 29824; 29826; 29822; 76942; J0690; J1100; J1170; J1885; J2250; J2370; J2405; J2704; J3010